=== PATIENT | male | born 1985 | race Caucasian/White ===

== ENCOUNTER 2022-12-17 10:04 | Emergency (ER) | payer OTHER ==
[2022-12-17] MEDS ORDERED: Ketorolac 60 MG/2 ML SDV IM ONE (12:27)
== END 2022-12-17 13:49 | disposition home or self-care (01) ==
LOC: JD.ED 10:04
DX: N20.2 Calculus of kidney with calculus of ureter (principal); Z88.5 Allergy status to narcotic agent; Z87.442 Personal history of urinary calculi
CPT/HCPCS: 36415; 74176; 76870; 80053; 81001; 85025; 93975; 96372; 99284; J1885

== ENCOUNTER 2023-02-15 18:55 | Emergency (ER) | payer OTHER ==
[2023-02-15] MEDS ORDERED: traMADol 50 MG Tab PO ONE (19:55)
[2023-02-15 20:00] LABS: APPEARANCE,URINE CLOUDY (Clear); BILIRUBIN,URINE 1+ (Negative); COLOR,URINE AMBER (Yellow); GLUCOSE,URINE NEGATIVE (Negative); KETONES,URINE TRACE (Negative); LEUKOCYTE ESTERASE,URINE NEGATIVE (Negative); NITRITE,URINE NEGATIVE (Negative); OCCULT BLOOD,URINE 3+ (Negative); PROTEIN,URINE 3+ (Negative)
[2023-02-15 20:08] LABS: BACTERIA,URINE FEW /hpf (FEW); EPITHELIAL CELLS,URINE NOT SEEN /hpf (0-5); MUCUS,URINE NOT SEEN /hpf (FEW); RBC,URINE TOO NUMEROUS TO CNT /hpf (0-5)
== END 2023-02-15 20:17 | disposition home or self-care (01) ==
LOC: JD.ED 18:55
DX: N20.2 Calculus of kidney with calculus of ureter (principal); Z88.5 Allergy status to narcotic agent
CPT/HCPCS: 81001; 99284; A9270; 99283